=== PATIENT | female | born 1990 | race Caucasian/White ===

== ENCOUNTER 2021-10-24 09:10 | Emergency (ER) | payer MEDICAID, OTHER ==
[~2021-10-24] VITALS: Ht 160 cm; Wt 85.3 kg
[2021-10-24 09:39] LABS: *URINE HCG, QUAL NEGATIVE (NEGATIVE)
[2021-10-24 09:40] LABS: *BILIRUBIN,URIN NEGATIVE (NEGATIVE); *BLOOD, URINE 1+ (NEGATIVE); *CLARITY,URINE CLEAR (CLEAR); *KETONES,URINE NEGATIVE (NEGATIVE); *UROBILINOGEN,URINE 0.2 E.U./dl (NORMAL); LEUKOCYTE ESTERASE ,URINE 3+ (NEGATIVE); NITRITE, URINE NEGATIVE (NEGATIVE); UGLUCOSE NEGATIVE (NEGATIVE)
[2021-10-24] MEDS ORDERED: ONDANSETRON 4 MG/2 ML VIAL IV ONE (09:45)
[2021-10-24] MEDS ORDERED: IV NORMAL SALINE 1000 ML BAG IV ONE (09:45)
[2021-10-24] MEDS ORDERED: MORPHINE SULFATE 2 MG/1 ML DISP.SYRIN IV ONE (09:45)
[2021-10-24] MEDS ORDERED: MORPHINE SULFATE 2 MG/1 ML DISP.SYRIN ONE ×2 (09:58→10:03)
[2021-10-24] MEDS ORDERED: ONDANSETRON 4 MG/2 ML VIAL ONE (09:58)
[2021-10-24 10:06] LABS: *COLOR,URINE LIGHT YELLOW (YELLOW)
[2021-10-24 10:10] LABS: HEMATOCRIT 39.8 % (31.2-41.9); MEAN CORPUSCULAR HEMOGLOBIN 28.5 uug (24.7-32.8); MEAN CORPUSCULAR VOLUME 85.1 fL (75.5-95.3); PLATELET COUNT (AUTO) 221 K/uL (179-408)
--- NOTE | 2021-10-24 10:13 | NUR ---
Pt out of ER for CT scan.
[2021-10-24 10:14] LABS: BACTERIA,URINE MODERATE /HPF (NONE SEEN); SQUAMOUS EPITHELIAL CELL,UR MODERATE /HPF (NONE SEEN)
[2021-10-24 10:28] LABS: CARBON DIOXIDE 24 mmol/L (21-32); CHLORIDE 108 mmol/L (98-107); CREATININE 0.6 mg/dL (0.6-1.3); GLUCOSE 98 mg/dL (74-106); POTASSIUM 4.5 mmol/L (3.5-5.1); UREA NITROGEN, BLOOD 11 mg/dL (7-18)
[2021-10-24 10:33] LABS: ALANINE AMINOTRANSFERASE 34 U/L (14-59); ALKALINE PHOSPHATASE 127 U/L (50-136); ASPARTATE AMINOTRANSFERASE 27 U/L (15-37); BILIRUBIN,DIRECT < 0.1 mg/dL (0.0-0.2); BILIRUBIN,TOTAL 0.2 mg/dL (0.2-1.0); LIPASE 106 U/L (73-393); TOTAL PROTEIN, SERUM 7.9 g/dL (6.4-8.2)
--- NOTE | 2021-10-24 10:33 | NUR ---
Pt back from Ct, states pain is slightly better.
[2021-10-24] MEDS ORDERED: LIDOCAINE VISCUS 2% 15 ML UDC MM ONE (11:15)
[2021-10-24] MEDS ORDERED: FAMOTIDINE. 20 MG/2 ML VIAL IV ONE ×2 (11:15→11:18)
[2021-10-24] MEDS ORDERED: MAG HYDROX/AL HYDROX/SIMETH 30 ML LIQUID UDC PO ONE (11:15)
[2021-10-24] MEDS ORDERED: MAG HYDROX/AL HYDROX/SIMETH 30 ML LIQUID UDC ONE (11:18)
[2021-10-24] MEDS ORDERED: LIDOCAINE VISCUS 2% 15 ML UDC ONE (11:18)
[2021-10-24] MEDS ORDERED: CEphaleXIN 500 MG CAPSULE ONE (12:43)
[2021-10-24] MEDS ORDERED: CEphaleXIN 500 MG CAPSULE PO ONE (12:45)
[2021-10-24] MEDS ORDERED: OXYC5CAP18 PO (12:54)
[2021-10-24] MEDS ORDERED: CEPH500C2 PO (12:55)
--- NOTE | 2021-10-24 12:57 | NUR ---
IV removed. Catheter intact and site benign. Pressure and 4x4 gauze applied to site. No bleeding noted.
--- NOTE | 2021-10-24 13:03 | NUR ---
Patient discharged to home in stable condition. Written and verbal after care instructions given. Patient verbalizes understanding of instructions. Stressed follow up or return to ER for worsening s/s.
[2021-10-24 13:04] VITALS: BP 107/66
== END 2021-10-24 13:04 | disposition home or self-care (01) ==
LOC: ER 09:10
DX: R10.13 Epigastric pain (principal); R82.81 Pyuria; R11.0 Nausea; Z90.710 Acquired absence of both cervix and uterus; Z90.49 Acquired absence of other specified parts of digestive tract
CPT/HCPCS: 36415; 74176; 80048; 80076; 81001; 83690; 84484; 84703; 85025; 87086; 93005; 96361; 96374; 96375; 99285; J2270; J2405; J3490; J7040; A4663

== ENCOUNTER 2022-08-15 08:49 | Emergency (ER) | payer MEDICAID ==
[~2022-08-15] VITALS: Ht 167.6 cm; Wt 81.6 kg
[~2022-08-15 08:49] MED LIST: CEPH500C2 PO; OXYC5CAP18 PO
[2022-08-15] MEDS ORDERED: IV NORMAL SALINE 1000 ML BAG IV ONE (09:15)
[2022-08-15] MEDS ORDERED: MORPHINE SULFATE 2 MG/1 ML DISP.SYRIN IV ONE (09:15)
[2022-08-15] MEDS ORDERED: PROCHLORPERAZINE EDISYLATE 10 MG/2 ML VIAL IV ONE (09:15)
[2022-08-15] MEDS ORDERED: PROCHLORPERAZINE EDISYLATE 10 MG/2 ML VIAL ONE (09:27)
[2022-08-15] MEDS ORDERED: MORPHINE SULFATE 4 MG/1 ML DISP.SYRIN ONE ×2 (09:28→09:49)
--- NOTE | 2022-08-15 09:30 | NUR ---
Pt seen by Safety measures in place. Will continue to monitor.
[2022-08-15 09:34] LABS: MEAN CORPUSCULAR VOLUME 85.4 fL (75.5-95.3); PLATELET COUNT (AUTO) 268 K/uL (179-408)
[2022-08-15 09:34] LABS: *BILIRUBIN,URIN NEGATIVE (NEGATIVE); *CLARITY,URINE CLEAR (CLEAR); *COLOR,URINE YELLOW (YELLOW); *KETONES,URINE NEGATIVE (NEGATIVE); *UROBILINOGEN,URINE 0.2 E.U./dl (NORMAL); LEUKOCYTE ESTERASE ,URINE 1+ (NEGATIVE); NITRITE, URINE NEGATIVE (NEGATIVE); PH,URINE 6.5 (5.0-8.0); UGLUCOSE NEGATIVE (NEGATIVE)
[2022-08-15 09:35] LABS: *BLOOD, URINE TRACE (NEGATIVE)
[2022-08-15 09:43] LABS: *URINE HCG, QUAL NEG (NEGATIVE)
[2022-08-15 09:50] LABS: CREATININE 0.7 mg/dL (0.6-1.3); POTASSIUM 3.7 mmol/L (3.5-5.1)
--- NOTE | 2022-08-15 10:01 | NUR ---
Wasted 4mg of morphine due to spill. Documented it on [employer]. Safety measures in place. Will continue to monitor.
[2022-08-15] MEDS ORDERED: ONDA4TAB11 PO (10:26)
--- NOTE | 2022-08-15 10:39 | NUR ---
Patient discharged to home in stable condition. Written and verbal after care instructions given. Patient verbalizes understanding of instructions. Gave pt work note. Stressed follow up or return to ER for worsening s/s.
[2022-08-15 10:40] VITALS: BP 130/92
[2022-08-15 11:03] LABS: RBC,URINE 0-3 /HPF (0-3)
[2022-08-15 11:04] LABS: BACTERIA,URINE FEW /HPF (NONE SEEN); SQUAMOUS EPITHELIAL CELL,UR FEW /HPF (NONE SEEN)
== END 2022-08-15 10:40 | disposition home or self-care (01) ==
LOC: ER 08:49
DX: G43.909 Migraine, unspecified, not intractable, without status migrainosus (principal); Z90.710 Acquired absence of both cervix and uterus; R03.0 Elevated blood-pressure reading, without diagnosis of hypertension; Z90.49 Acquired absence of other specified parts of digestive tract
CPT/HCPCS: 99284; 96374; 96361; 96375; 80048; 81001; 84703; 85025; 36415; 87040; J0780; J2270; J7040; A4663

== ENCOUNTER 2022-10-09 10:59 | Emergency (ER) | payer MEDICAID ==
[~2022-10-09] VITALS: Ht 160 cm; Wt 81.6 kg
[~2022-10-09 10:59] MED LIST changes: +ONDA4TAB11 PO
--- NOTE | 2022-10-09 11:07 | NUR ---
Pt seen by MD for bedside Eval. Safety measures in place. Will continue to monitor.
[2022-10-09] MEDS ORDERED: PROCHLORPERAZINE EDISYLATE 10 MG/2 ML VIAL IV ONE (11:15)
[2022-10-09] MEDS ORDERED: IV NORMAL SALINE 1000 ML BAG IV ONE (11:15)
[2022-10-09] MEDS ORDERED: MORPHINE SULFATE 2 MG/1 ML DISP.SYRIN IV ONE (11:15)
[2022-10-09] MEDS ORDERED: MORPHINE SULFATE 4 MG/1 ML DISP.SYRIN ONE (11:34)
[2022-10-09] MEDS ORDERED: PROCHLORPERAZINE EDISYLATE 10 MG/2 ML VIAL ONE (11:34)
[2022-10-09] MEDS ORDERED: ONDA4TAB11 PO (12:05)
--- NOTE | 2022-10-09 12:42 | NUR ---
Patient resting in bed with family at bedside, IVF complete, remains stable for discharge home with family. HL removed, ACI given at this time, states understanding.
[2022-10-09 12:44] VITALS: BP 125/78
== END 2022-10-09 12:46 | disposition home or self-care (01) ==
LOC: ER 10:59
DX: G43.909 Migraine, unspecified, not intractable, without status migrainosus (principal); Z90.49 Acquired absence of other specified parts of digestive tract; Z90.710 Acquired absence of both cervix and uterus; Z79.899 Other long term (current) drug therapy
CPT/HCPCS: 99284; 96374; 96361; 96375; J0780; J2270; J7040; A4663